=== PATIENT | male | born 1990 | race African-American/Black ===

== ENCOUNTER 2022-03-05 00:28 | Emergency (ER) | payer SELFPAY ==
[2022-03-05] MEDS ORDERED: Ondansetron PF 4 MG/2 ML Vial ONE (01:01)
[2022-03-05] MEDS ORDERED: Sodium Chloride 0.9% 1,000 ML ONE ×2 (01:01→03:17)
[2022-03-05] MEDS ORDERED: Pantoprazole 40 MG VIAL ONE (01:01)
[2022-03-05] MEDS ORDERED: Metoclopramide HCl 10 MG/2 ML VIAL ONE (01:01)
[2022-03-05 01:25] LABS: ALT (SGPT) 21 U/L (8-55); AST (SGOT) 20 U/L (5-34); Albumin 5.2 g/dL (3.5-5.0); Alkaline Phosphatase 91 U/L (40-110); Anion Gap 20 mmol/L (10-20); BUN (Urea Nitrogen) 13 mg/dL (8.9-20.6); Bilirubin, Total 0.6 mg/dL (0.2-1.2); CK (CPK) 231 U/L (30-200); Calc. Creatinine Clearance 0 mL/min (70-130); Calcium 10.7 mg/dL (7.8-10.44); Chloride 103 mmol/L (98-107); Estimated GFR 76; Globulin 3.8 g/dL (2.4-3.5); Glucose 126 mg/dL (70-105); Hemoglobin 14.8 g/dL (14.0-18.0); Lipase 20 U/L (8-78); Lymphocytes 32 % (21-51); MDiff Complete? YES; Mean Corpuscular HGB CONC 33.4 g/dL (32.0-36.0); Mean Corpuscular Hemoglobin 29.8 pg (27.0-31.0); Mean Corpuscular Volume 89.1 fL (78.0-98.0); Mean Platelet Volume 9.7 fL (7.4-10.4); Monocytes 9 % (0-10); Neutrophil 58 % (42-75); Platelet Count 291 thou/uL (130-400); Potassium 3.6 mmol/L (3.5-5.1); RBC Distribution Width 13.4 % (11.5-14.5); RBC Morphology Normal; Red Blood Cell (RBC) Count 4.98 mill/uL (4.70-6.10); Sodium 140 mmol/L (136-145); White Blood Cell (WBC) Count 9.6 thou/uL (4.8-10.8)
[2022-03-05 01:35] LABS: Carbon Dioxide 21 mmol/L (22-29)
[2022-03-05] MEDS ORDERED: Promethazine HCl 25 MG/ML VIAL ONE (03:17)
== END 2022-03-05 03:35 | disposition home or self-care (01) ==
LOC: MADERS 00:28
DX: R11.2 Nausea with vomiting, unspecified (principal); E86.0 Dehydration; F12.10 Cannabis abuse, uncomplicated; I10 Essential (primary) hypertension; F17.200 Nicotine dependence, unspecified, uncomplicated; Z21 Asymptomatic human immunodeficiency virus [HIV] infection status; Z79.899 Other long term (current) drug therapy
CPT/HCPCS: 74022; 80053; 82550; 83690; 85025; 86140; 96365; 96366; 96375; C9113; J2405; J2550; J2765; J7050

== ENCOUNTER 2022-03-05 20:46 | Emergency (ER) | payer SELFPAY ==
[~2022-03-05 20:46] MED LIST: Iopamidol 370 76% 100 ML VIAL ONE
[2022-03-05 22:07] LABS: #Basophils 0.1 thou/uL (0.0-0.2); #Lymphocytes 3.9 thou/uL (1.20-3.40); #Monocytes 1.2 thou/uL (0.11-0.59); #Neutrophils 4.1 thou/uL (1.40-6.50); %Basophils 0.6 % (0.0-1.0); %Eosinophils 0.3 % (0.0-10.0); %Lymphocytes 41.9 % (21.0-51.0); %Monocytes 13.1 % (0.0-10.0); %Neutrophils 44.2 % (42.0-75.0); Hemoglobin 14.6 g/dL (14.0-18.0); Mean Corpuscular HGB CONC 32.9 g/dL (32.0-36.0); Mean Corpuscular Hemoglobin 29.2 pg (27.0-31.0); Mean Platelet Volume 10.1 fL (7.4-10.4); Platelet Count 281 thou/uL (130-400); RBC Distribution Width 12.7 % (11.5-14.5); Red Blood Cell (RBC) Count 4.99 mill/uL (4.70-6.10); White Blood Cell (WBC) Count 9.4 thou/uL (4.8-10.8)
[2022-03-05 22:15] LABS: Bilirubin Negative (Negative); Blood, Urine Negative (Negative); Clarity Clear (Clear); Glucose, Urine (Dipstick) Negative (Negative); Ketone, Urine Negative (Negative); Leukocyte Negative (Negative); Nitrite Negative (Negative); Protein, Urine (Dipstick) 100 mg/dL (Neg-Trace); Urobilinogen 0.2 mg/dL (Less than 2); pH, Urine 5.5 (5.0-9.0)
[2022-03-05 22:24] LABS: Mucous/LPF 4+ LPF (<2+); RBC/HPF 0-3 HPF (0-3); Squamous Epithelial 0-3 HPF (0-3); WBC/HPF 0-3 HPF (0-3)
[2022-03-05] MEDS ORDERED: Sodium Chloride 0.9% 1,000 ML ONE (22:24)
[2022-03-05] MEDS ORDERED: Haloperidol Lactate 5 MG/ML VIAL ONE (22:24)
[2022-03-05 22:28] LABS: ALT (SGPT) 23 U/L (8-55); AST (SGOT) 19 U/L (5-34); Alkaline Phosphatase 90 U/L (40-110); Anion Gap 20 mmol/L (10-20); BUN (Urea Nitrogen) 11 mg/dL (8.9-20.6); Bilirubin, Total 0.7 mg/dL (0.2-1.2); Calc. Creatinine Clearance 0 mL/min (70-130); Calcium 10.6 mg/dL (7.8-10.44); Carbon Dioxide 22 mmol/L (22-29); Chloride 102 mmol/L (98-107); Estimated GFR 82; Globulin 3.9 g/dL (2.4-3.5); Glucose 112 mg/dL (70-105); Lipase 25 U/L (8-78); Potassium 3.9 mmol/L (3.5-5.1); Protein, Total 8.9 g/dL (6.0-8.3); Sodium 140 mmol/L (136-145)
== END 2022-03-05 23:53 | disposition home or self-care (01) ==
LOC: MADERS 20:46
DX: R11.2 Nausea with vomiting, unspecified (principal); I10 Essential (primary) hypertension; F17.200 Nicotine dependence, unspecified, uncomplicated; Z21 Asymptomatic human immunodeficiency virus [HIV] infection status; Z79.899 Other long term (current) drug therapy
CPT/HCPCS: 74177; 81003; 81015; 83690; 93005; 96365; J1630; J7050; Q9967

== ENCOUNTER 2022-06-22 13:58 | Emergency (ER) | payer SELFPAY ==
[2022-06-22] MEDS ORDERED: Ondansetron PF 4 MG/2 ML Vial ONE (15:04)
[2022-06-22] MEDS ORDERED: Dicyclomine 20 MG/2 ML VIAL ONE (15:04)
[2022-06-22] MEDS ORDERED: Ketorolac Tromethamine 30 MG/ML VIAL ONE (15:04)
[2022-06-22] MEDS ORDERED: Lactated Ringer's 1,000 ML ONE (15:04)
[2022-06-22 15:11] LABS: #Lymphocytes 1.9 thou/uL (1.20-3.40); #Monocytes 0.6 thou/uL (0.11-0.59); #Neutrophils 5.2 thou/uL (1.40-6.50); %Basophils 0.5 % (0.0-1.0); %Eosinophils 0.1 % (0.0-10.0); %Lymphocytes 24.8 % (21.0-51.0); %Monocytes 7.6 % (0.0-10.0); %Neutrophils 66.9 % (42.0-75.0); Hemoglobin 15.7 g/dL (14.0-18.0); Mean Corpuscular HGB CONC 33.5 g/dL (32.0-36.0); Mean Corpuscular Volume 92.4 fl (78.0-98.0); Mean Platelet Volume 8.8 fL (7.4-10.4); Platelet Count 278 10x3/uL (130-400); Red Blood Cell (RBC) Count 5.08 mill/uL (4.70-6.10); White Blood Cell (WBC) Count 7.8 10x3/uL (4.8-10.8)
[2022-06-22 15:31] LABS: ALT (SGPT) 37 U/L (8-55); AST (SGOT) 27 U/L (5-34); Albumin 5.1 g/dL (3.5-5.0); Alkaline Phosphatase 99 U/L (40-110); Anion Gap 16 mmol/L (10-20); BUN (Urea Nitrogen) 11 mg/dL (8.9-20.6); Bilirubin, Total 0.6 mg/dL (0.2-1.2); CK (CPK) 167 U/L (30-200); Calc. Creatinine Clearance 0 mL/min (70-130); Calcium 10.8 mg/dL (7.8-10.44); Carbon Dioxide 23 mmol/L (22-29); Chloride 105 mmol/L (98-107); Estimated GFR 70; Globulin 4.4 g/dL (2.4-3.5); Glucose 130 mg/dL (70-105); Lipase 18 U/L (8-78); Magnesium 1.9 mg/dL (1.6-2.6); Potassium 3.8 mmol/L (3.5-5.1); Protein, Total 9.5 g/dL (6.0-8.3); Sodium 140 mmol/L (136-145)
[2022-06-22] MEDS ORDERED: Sodium Chloride 0.9% 100 ML ONE ×2 (16:18→16:37)
[2022-06-22] MEDS ORDERED: Promethazine HCl 25 MG/ML VIAL ONE (16:18)
[2022-06-22] MEDS ORDERED: Lactated Ringer's 2,000 ML ONE (16:18)
[2022-06-22] MEDS ORDERED: Morphine 4 MG/ML VIAL ONE (16:37)
[2022-06-22] MEDS ORDERED: Famotidine/PF 20 mg/2ml Vial ONE (16:37)
[2022-06-22] MEDS ORDERED: Haloperidol Lactate 5 MG/ML VIAL ONE (19:37)
== END 2022-06-22 20:35 | disposition home or self-care (01) ==
LOC: MADERS 13:58
DX: K52.9 Noninfective gastroenteritis and colitis, unspecified (principal); N17.9 Acute kidney failure, unspecified; I10 Essential (primary) hypertension; F17.200 Nicotine dependence, unspecified, uncomplicated
CPT/HCPCS: 36415; 74177; 80053; 82550; 83690; 83735; 85025; 87804; 93005; 94760; 96361; 96372; 96374; 96375; J1630; J1885; J2270; J2405; J2550; J7120; Q9967; S0028

== ENCOUNTER 2022-06-23 10:00 | Emergency (ER) | payer SELFPAY ==
[2022-06-23] MEDS ORDERED: Sodium Chloride 0.9% 1,000 ML ONE (11:52)
[2022-06-23] MEDS ORDERED: Haloperidol Lactate 5 MG/ML VIAL ONE (11:52)
[2022-06-23 12:21] LABS: Eosinophils 4 % (0-10); Hemoglobin 14.2 g/dL (14.0-18.0); Lymphocytes 24 % (21-51); MDiff Complete? YES; Mean Corpuscular HGB CONC 32.9 g/dL (32.0-36.0); Mean Corpuscular Hemoglobin 30.7 pg (27.0-31.0); Mean Corpuscular Volume 93.4 fl (78.0-98.0); Mean Platelet Volume 9.1 fL (7.4-10.4); Monocytes 4 % (0-10); Neutrophil 68 % (42-75); Platelet Count 275 10x3/uL (130-400); RBC Distribution Width 12.3 % (11.5-14.5); Red Blood Cell (RBC) Count 4.63 mill/uL (4.70-6.10); White Blood Cell (WBC) Count 10.2 10x3/uL (4.8-10.8)
[2022-06-23 12:25] LABS: ALT (SGPT) 31 U/L (8-55); AST (SGOT) 28 U/L (5-34); Albumin 4.8 g/dL (3.5-5.0); Alkaline Phosphatase 83 U/L (40-110); Anion Gap 17 mmol/L (10-20); BUN (Urea Nitrogen) 13 mg/dL (8.9-20.6); Bilirubin, Total 0.6 mg/dL (0.2-1.2); Calc. Creatinine Clearance 0 mL/min (70-130); Calcium 10.1 mg/dL (7.8-10.44); Carbon Dioxide 26 mmol/L (22-29); Chloride 100 mmol/L (98-107); Estimated GFR 76; Glucose 124 mg/dL (70-105); Lipase 24 U/L (8-78); Potassium 3.5 mmol/L (3.5-5.1); Protein, Total 8.8 g/dL (6.0-8.3); Sodium 139 mmol/L (136-145)
[2022-06-23 12:40] LABS: Bilirubin Negative (Negative); Blood, Urine Negative (Negative); Clarity Clear (Clear); Glucose, Urine (Dipstick) Negative (Negative); Ketone, Urine Trace mg/dL (Negative); Leukocyte Negative (Negative); Nitrite Negative (Negative); Protein, Urine (Dipstick) 100 mg/dL (Neg-Trace); Urobilinogen 0.2 mg/dL (Less than 2)
[2022-06-23 12:41] LABS: Specific Gravity, Urine 1.032 (1.002-1.036)
[2022-06-23 12:43] LABS: Bacteria/HPF None Seen HPF (None Seen); Mucous/LPF 1+ LPF (<2+); RBC/HPF None Seen HPF (0-3); Squamous Epithelial 0-3 HPF (0-3); WBC/HPF 0-3 HPF (0-3)
== END 2022-06-23 12:38 | disposition home or self-care (01) ==
LOC: MADERS 10:00
DX: R11.2 Nausea with vomiting, unspecified (principal); R10.816 Epigastric abdominal tenderness; I10 Essential (primary) hypertension; F17.200 Nicotine dependence, unspecified, uncomplicated
CPT/HCPCS: 36415; 80053; 81003; 81015; 83690; 85025; 96372; 99284; J1630; J7050